=== PATIENT | male | born 1955 | race Caucasian/White ===

== ENCOUNTER 2017-02-18 12:47 | Observation (INO) | payer MEDICARE, OTHER ==
[2017-02-18] MEDS ORDERED: ONDANSETRON HCL IV 4 MG/2 ML VIAL IV ONE (13:28)
[2017-02-18] MEDS ORDERED: 0.9 % SODIUM CHLORIDE 1,000 ML BAG IV ONE ×2 (13:28→15:22)
[2017-02-18] MEDS ORDERED: PANTOPRAZOLE SODIUM IV 40 MG VIAL IVP ONE (13:28)
[2017-02-18] MEDS ORDERED: SUCRALFATE 1 G/10 ML UD PO ONE (13:29)
--- NOTE | 2017-02-18 13:34 | Emergency Department Record ---
History of Present Illness - General Chief complaint: Nausea, Vomiting, Diarrhea Stated complaint: NAUSEA Time Seen by Provider: 02/18/17 13:02 Source: Patient Mode of Arrival: EMS Limitations: No limitations - History of Present Illness Initial comments: The patient is here due to a one day hx of nausea, and upper abdominal pain. The patient denies any vomiting or back pain and also denies any CP or SOB. He states he had to much to drink last night and then passed out and slept outside. Today he has not felt well and has been very nauseated all day. He also feels anxious due to not taking his anxiety medicines today. He has had a Lap in the past to have part of his colon removed. MD complaint: Abdominal pain, Nausea Onset/Timin -: Days(s) Associated Abdominal Pain: Yes Location: Diffuse Severity scale (1-10): 7 Quality: Aching, Cramping Consistency: Constant Improves with: None Worsens with: None - Related Data Home Medications Medication Instructions Recorded Confirmed Last Taken Aspirin [Low Dose Aspirin EC] 81 mg PO DAILY 02/18/17 02/18/17 02/17/17 Atenolol [Tenormin] 50 mg PO DAILY 02/18/17 02/18/17 02/18/17 Bupropion HCl [Bupropion HCl ER] 200 mg PO ASDIR 02/18/17 02/18/17 02/18/17 Clonazepam [Klonopin] 0.5 mg PO TID 02/18/17 02/18/17 02/17/17 Guaifenesin 200 mg PO ASDIR 02/18/17 02/18/17 02/18/17 Hydrochlorothiazide 25 mg PO ASDIR 02/18/17 02/18/17 02/18/17 Lisinopril 10 mg PO DAILY 02/18/17 02/18/17 02/18/17 Omeprazole [Prilosec] 20 mg PO DAILY 02/18/17 02/18/17 02/18/17 Sertraline HCl [Zoloft] 100 mg PO ASDIR 02/18/17 02/18/17 02/18/17 Allergies Allergy/AdvReac Type Severity Reaction Status Date / Time No Known Drug Allergies Allergy Verified 02/18/17 13:03 Travel Screening - Travel/Exposure Within Last 30 Days Have you traveled within the last 30 days?: No - Travel/Exposure Within Last Year Have you traveled outside the [place] in the last year?: No - Additonal Travel Details Have you been exposed to anyone with a communicable illness?: No - Travel Symptoms Symptom Screening: None Review of Systems Constitutional: Denies: Chills, Fever Eyes: Denies: Eye discharge ENT: Denies: Congestion Respiratory: Denies: Cough, Dyspnea Past Medical History - SOCIAL HISTORY Smoking Status: Current every day smoker Alcohol Use: Occassional Drug Use Detail:: Marijuana - RESPIRATORY Hx Respiratory Disorders: No - CARDIOVASCULAR Hx Cardio Disorders: Yes Hx Hypertension: Yes - NEURO Hx Neuro Disorders: No - GI Hx GI Disorders: Yes Hx Reflux: Yes - Hx Genitourinary Disorders: No - ENDOCRINE Hx Endocrine Disorders: Yes Hx Diabetes: Yes - MUSCULOSKELETAL Hx Musculoskeletal Disorders: Yes Hx Arthritis: Yes - PSYCH Hx Psych Problems: Yes Hx Anxiety: Yes Hx Depression: Yes - HEMATOLOGY/ONCOLOGY Hx Hematology/Oncology Disorders: No Family Medical History Any Significant Family History?: Yes Hx Diabetes: Mother Hx HTN: Mother Physical Exam - General General Appearance: Alert, Oriented x3, Cooperative, No acute distress - Head Head exam: Atraumatic, Normocephalic, Normal inspection - Eye Eye exam: Normal appearance, PERRL - ENT Throat exam: Normal inspection. negative: Tonsillar erythema, Tonsillar exudate - Neck Neck exam: Normal inspection, Full ROM. negative: Tenderness - Respiratory Respiratory exam: Normal lung sounds bilaterally. negative: Respiratory distress - Cardiovascular Cardiovascular Exam: Regular rate, Normal rhythm, Normal heart sounds - GI/Abdominal GI/Abdominal exam: Soft, Tenderness (There is mild epigastric tenderness but no guarding or rebound. The abdomen is very soft.). negative: Distended, Guarding , Rebound, Rigid - Extremities Extremities exam: Normal inspection, Full ROM, Normal capillary refill. negative: Tenderness Course Vital Signs 02/18/17 13:12 Temperature 97.6 F Pulse Rate 57 L Respiratory 18 Rate Blood Pressure 121/81 Pulse Ox 98 - Reevaluation(s) Reevaluation #1: The patient is doing much better at this time. He denies any significant pain and his nausea is much improved. One exam his abdomen is very soft and nontender in all 4 quads. 02/18/17 15:53 Reevaluation #2: The patient is doing much better at this time. His pain did resolve with the Dilaudid. On recheck his WBC did decrease but his Lactate was elevated at 3.5. Due to that fact I do feel it is important to watch the patient in the hospital overnight. The patient agrees to the plan. I also did discuss the case with Mariella QUIÑONEZ) and she does accept the admission for Dr. Ba. 02/18/17 17:57 02/18/17 18:03 Reevaluation #3: I did also discuss the case with Dr. Kearney (Gen Surg) and he will consult on the case. 02/18/17 18:40 Medical Decision Making - Data Complexity MDM Data: Labs Ordered and/or Reviewed, X-Ray Ordered and/or Reviewed, EKG Ordered and/or Reviewed - Lab Data Result diagrams: 02/18/17 17:30 02/18/17 14:22 - EKG Data -: EKG Interpreted by Me EKG: No Acute Changes (NSR. Nonspecific IVCD.) - Radiology Data Radiology results: Report reviewed (CT: No acute changes or surgical pathology.) Disposition Disposition: Admit Clinical Impression: Abdominal pain Qualifiers: Abdominal location: generalized Qualified Code(s): R10.84 - Generalized abdominal pain Disposition: Still a Patient at [facility] Decision to Admit: Admit from ER Decision to Admit Date: 02/18/17 Decision to Admit Time: 18:11 Accepting Physician: Jesenia Time Discussed w/Accepting Physician: 18:11 Condition: (2) Stable Forms: Patient Portal Access Time of Disposition: 18:11
[2017-02-18 14:30] LABS: HEMATOCRIT 51.7 % (42.0-52.0); HEMOGLOBIN 17.8 gm/dl (14.0-18.0); MEAN CELL VOLUME 89.1 fl (81-97); MEAN CORPUSCULAR HGB CONC 34.4 g/dl (32-36); MEAN PLATELET VOLUME 10.6 fl (7.4-10.4); PLATELET COUNT 325 K/uL (130-400); RED CELL DISTRIBUTION WIDTH 13.4 % (11.5-14.5); WHITE BLOOD COUNT W/O DIFF 18.2 K/uL (4.2-12.2)
[2017-02-18 14:31] LABS: MEAN CORPUSCULAR HEMOGLOBIN 30.6 pg (27-33)
[2017-02-18 14:40] LABS: CREATINE PHOSPHOKINASE 167 U/L (55-170)
[2017-02-18 14:41] LABS: ALBUMIN 5.2 gm/dL (3.5-5.0); ALKALINE PHOSPHATASE 110 U/L (38-126); ALT/SGPT 29 U/L (21-72); ANION GAP 19.4 (7-16); AST/SGOT 38 U/L (17-59); BILIRUBIN,TOTAL 1.06 mg/dL (0.2-1.3); BLOOD UREA NITROGEN 16 mg/dL (9-20); CARBON DIOXIDE 26.6 mmol/L (22-30); EST GLOMERULAR FILTRATION RATE > 60 ml/min; GLUCOSE,RANDOM 167 mg/dL (70-110); LIPASE 52 U/L (23-300); TOTAL PROTEIN 8.4 gm/dL (6.3-8.2)
[2017-02-18 14:44] LABS: PLATELET ESTIMATE NORMAL (NORMAL)
[2017-02-18 14:53] LABS: CKMB 3.1 ug/L (0-6); TROPONIN I < 0.012 ng/mL (0.00-0.034)
[2017-02-18] MEDS ORDERED: ONDANSETRON HCL IV 4 MG/2 ML VIAL IVP ONE (16:26)
[2017-02-18 16:36] LABS: URINE APPEARANCE CLEAR; URINE BILIRUBIN NEGATIVE (NEGATIVE); URINE BLOOD TRACE-I (NEGATIVE); URINE COLOR YELLOW; URINE GLUCOSE (UA) NEGATIVE (NEGATIVE); URINE KETONE 15 mg/dL (NEGATIVE); URINE LEUKOCYTE ESTERASE NEGATIVE (NEGATIVE); URINE NITRITE NEGATIVE (NEGATIVE); URINE UROBILINOGEN 0.2 E.U./dL (0.20 - 1.00)
[2017-02-18 16:43] LABS: URINE EPITHELIAL CELLS NONE SEEN (FEW); URINE RBC 0 - 2 (NONE SEEN); URINE WBC NONE SEEN (0-2/hpf)
[2017-02-18] MEDS ORDERED: HYDROMORPHONE HCL 1 MG/ML CPJ IVP ONE (17:11)
[2017-02-18] MEDS ORDERED: MAGNESIUM HYDROXIDE/AL HYDROX 30 ML, LIDOCAINE VISC 2% 200 MG PO ONE ×2 (17:16)
[2017-02-18 17:38] LABS: HEMATOCRIT 46.6 % (42.0-52.0); HEMOGLOBIN 15.9 gm/dl (14.0-18.0); MEAN CELL VOLUME 89.8 fl (81-97); MEAN CORPUSCULAR HEMOGLOBIN 30.6 pg (27-33); MEAN CORPUSCULAR HGB CONC 34.1 g/dl (32-36); MEAN PLATELET VOLUME 10.4 fl (7.4-10.4); PLATELET COUNT 277 K/uL (130-400); RED BLOOD COUNT 5.19 M/uL (4.40-5.70); RED CELL DISTRIBUTION WIDTH 13.3 % (11.5-14.5); WHITE BLOOD COUNT W/O DIFF 16.3 K/uL (4.2-12.2)
[2017-02-18 17:39] LABS: GRAN % 89.6 % (47-80)
[2017-02-18 17:40] LABS: BASO % 0.1 % (0-6); EOS % 0.1 % (0-6); LYMPH % 5.5 % (16-45); MONO % 4.7 % (0-9)
[2017-02-18 17:52] LABS: LACTIC ACID 3.5 mmol/L (0.7-2.1)
[2017-02-18 17:53] LABS: C-REACTIVE PROTEIN 1.2 mg/dL (0.0-0.9)
[2017-02-18] MEDS ORDERED: 0.9 % SODIUM CHLORIDE 1000ML 1,000 ML IV PRN (19:13)
[2017-02-18] MEDS ORDERED: ONDANSETRON HCL IV 4 MG/2 ML VIAL IVP PRN (19:13)
[2017-02-18] MEDS ORDERED: ACETAMINOPHEN 500 MG TABLET PO PRN (19:13)
[2017-02-18] MEDS ORDERED: HYDROMORPHONE HCL 1 MG/ML CPJ IVP PRN (19:13)
[2017-02-18] MEDS: GUAIFENESIN 200 MG PO SCH (21:55)
[2017-02-18] MEDS: PATIENT OWN MED: CLONAZEPAM 0.5 MG PO SCH (21:55)
[2017-02-18] MEDS ORDERED: MELATONIN 5 MG TABLET PO SCH (22:00)
[2017-02-19 07:05] LABS: BASO % 0.2 % (0-6); EOS % 0.9 % (0-6); GRAN % 72.3 % (47-80); HEMOGLOBIN 14.8 gm/dl (14.0-18.0); MEAN CELL VOLUME 92.2 fl (81-97); MEAN CORPUSCULAR HEMOGLOBIN 30.3 pg (27-33); MEAN CORPUSCULAR HGB CONC 32.9 g/dl (32-36); MEAN PLATELET VOLUME 10.5 fl (7.4-10.4); MONO % 8.6 % (0-9); PLATELET COUNT 230 K/uL (130-400); RED BLOOD COUNT 4.88 M/uL (4.40-5.70); RED CELL DISTRIBUTION WIDTH 13.4 % (11.5-14.5); WHITE BLOOD COUNT W/O DIFF 15.1 K/uL (4.2-12.2)
[2017-02-19 07:38] LABS: BLOOD UREA NITROGEN 17 mg/dL (9-20); CREATININE 0.9 mg/dL (0.66-1.25); EST GLOMERULAR FILTRATION RATE > 60 ml/min; GLUCOSE,RANDOM 131 mg/dL (70-110)
--- NOTE | 2017-02-19 09:23 | History & Physical ---
History of Present Illness - Date of Service Date of Service for History & Physical: 02/19/17 - History of Present Illness Admitting Diagnosis: 1. Acute Abdominal Pain History of Present Illness: 61yo male with CC of vomiting. He has history of T2DM, anxiety, depression, GERD , arthritis, alcohol use, smoker and marijuana use. 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 He is a and follows with [facility] in [place]. Patient presented to the ED via ambulance for nausea with vomiting. 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 He started to feel "not right" and having some nausea and heartburn two days ago. that night he drank more alcohol "than I should have." He developed worsening nausea and vomiting the next day and was not able to keep fluids down and began to have some epigastric pain so decided to come to ED. While in the ED, patient was afebrile with pulse of 57 and bp of 121/81. His EKG was negative for ST changes. 1st set of CE returned wnl. Cbc showed elevated white count at 18 and CMP was unremarkable with normal renal function and electrolytes. his lactic acid level was elevated at 3.5. CRP up at 1.2. Lipase wnl range as well. He underwent CT abdomen which was negative for an acute process. Dr. Kearney, surgery on-call, was contacted by ED physician. Patient was admitted for nausea/vomiting with elevated Lactic acid level. 02/19/17- Patient is doing very well this morning. says the zofran he received in ED helped significantly and he has not had any further epigastric pain since the dilaudid he got yesterday evening. He does report some generalized soreness of the abdomen from heaving so much. He has been tolerating his clear liquid diet and tolerated some oatmeal as well without any nausea or pain. He had a normal bowel movement yesterday. Denies chest pain, diarrhea, fever, chills. He currently follows with [facility] and state he has history of persistently elevated WBC count. He says they have been following that regularly with labs. pcp: [facility] in [place] Travel Screening - Travel/Exposure Within Last 30 Days Have you traveled within the last 30 days?: No - Travel/Exposure Within Last Year Have you traveled outside the [place] in the last year?: No - Additonal Travel Details Have you been exposed to anyone with a communicable illness?: No - Travel Symptoms Symptom Screening: None Review of Systems Constitutional: Denies: Chills, Fever Eyes: Denies: Eye discharge ENT: Denies: Congestion Respiratory: Denies: Cough, Dyspnea Gastrointestinal: Reports: Nausea, Vomiting. 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 - Hx Genitourinary Disorders: No Hx Prostate Problems: Yes - ENDOCRINE Hx Endocrine Disorders: Yes Hx Diabetes: Yes - MUSCULOSKELETAL Hx Musculoskeletal Disorders: Yes Hx Arthritis: Yes Hx Osteoporosis: Yes - PSYCH Hx Psych Problems: Yes Hx Anxiety: Yes Hx Depression: Yes Feelings of Hopelessness: Yes - HEMATOLOGY/ONCOLOGY Hx Hematology/Oncology Disorders: No Family Medical History Any Significant Family History?: Yes Hx Diabetes: Mother Hx HTN: Mother H&P Meds/Allergies - Allergies Allergies: Allergies Allergy/AdvReac Type Severity Reaction Status Date / Time No Known Drug Allergies Allergy Verified 02/18/17 13:03 - Home Medications Home Medications Medication Instructions Recorded Confirmed Last Taken Aspirin [Low Dose Aspirin EC] 81 mg PO DAILY 02/18/17 02/18/17 02/17/17 Atenolol [Tenormin] 50 mg PO DAILY 02/18/17 02/18/17 02/18/17 Bupropion HCl [Bupropion HCl ER] 200 mg PO ASDIR 02/18/17 02/18/17 02/18/17 Clonazepam [Klonopin] 0.5 mg PO TID 02/18/17 02/18/17 02/17/17 Guaifenesin 200 mg PO TID 02/18/17 02/18/17 02/18/17 Ketoconazole [Nizoral] 120 ml TP ASDIR 02/18/17 02/18/17 Unknown Lisinopril 10 mg PO DAILY 02/18/17 02/18/1717 Melatonin 10 mg PO QHS 02/18/17 02/18/17 Unknown Omeprazole [Prilosec] 20 mg PO DAILYAC 02/18/17 02/18/17 02/18/17 Sertraline HCl [Zoloft] 200 mg PO DAILY 02/18/17 02/18/17 02/18/17 - Active Medications Active Medications: Current Medications Acetaminophen (Tylenol 500mg Tab) 500 mg PO Q6H PRN PRN Reason: PAIN/TEMP Last Admin: 02/18/17 21:55 Dose: 500 mg Hydromorphone HCl (Dilaudid) 1 mg IVP Q4H PRN PRN Reason: Analgesia Sodium Chloride () 1,000 mls @ 125 mls/hr IV .Q8H PRN PRN Reason: LARGE VOLUME IV Last Admin: 02/19/17 06:03 Dose: 125 mls/hr Melatonin (Melatonin) 10 mg PO QHS [facility] Last Admin: 02/18/17 21:55 Dose: 10 mg Ondansetron HCl (Zofran) 4 mg IVP Q4H PRN PRN Reason: NAUSEA Pantoprazole Sodium (Protonix Iv) 40 mg IV DAILY [facility] Patient Own Med: (Aspirin 81 Mg) 1 each PO DAILY [facility] Patient Own Med: (Atenolol 50 Mg) 1 each PO DAILY [facility] Patient Own Med: (Bupropion Sr 100 Mg) 2 each PO DAILY [facility] Patient Own Med: (Clonazepam 0.5 Mg) 1 each PO TID [facility] Last Admin: 02/18/17 21:55 Dose: 1 each Patient Own Med: (Guaifenesin 200 Mg) 1 each PO TID [facility] Last Admin: 02/18/17 21:55 Dose: 1 each Patient Own Med: (Lisinopril 10 Mg) 1 each PO DAILY [facility] Patient Own Med: (Sertraline 100 Mg) 2 each PO DAILY [facility] Physical Exam - Vital Signs Vital Signs: Vital Signs - Last 24 Hrs Temp Pulse Resp BP Pulse Ox 02/19/17 05:13 97.6 F 65 18 123/78 97 02/18/17 20:00 98.3 F 84 18 123/74 98 02/18/17 19:13 99.4 F 84 20 153/82 95 - General General Appearance: Alert, Oriented x3, Cooperative, No acute distress Limitations: No limitations - Head Head exam: Atraumatic, Normocephalic, Normal inspection - Eye Eye exam: Normal appearance, PERRL - ENT Throat exam: Normal inspection. negative: Tonsillar erythema, Tonsillar exudate - Neck Neck exam: Normal inspection, Full ROM. negative: Tenderness - Respiratory Respiratory exam: Normal lung sounds bilaterally. negative: Respiratory distress - Cardiovascular Cardiovascular Exam: Regular rate, Normal rhythm, Normal heart sounds - GI/Abdominal GI/Abdominal exam: Soft, Normal bowel sounds. negative: Distended, Guarding, Rebound, Rigid, Tenderness (no ttp) - Extremities Extremities exam: Normal inspection, Full ROM, Normal capillary refill. negative: Tenderness - Neurological Neurological exam: Alert, Normal gait, Oriented X3, Reflexes normal Results - Labs Result Diagrams: 02/19/17 06:45 02/19/17 06:45 Labs Last 24 Hours: Laboratory Results - last 24 hr 02/19/17 02/19/17 06:45 06:45 WBC 15.1 H RBC 4.88 Hgb 14.8 Hct 45.0 MCV 92.2 MCH 30.3 MCHC 32.9 RDW 13.4 Plt Count 230 MPV 10.5 H Gran % 72.3 Lymphocytes % 18.0 Monocytes % 8.6 Eosinophils % 0.9 Basophils % 0.2 Sodium 136 Potassium 3.2 L Chloride 99 Carbon Dioxide 30.0 Anion Gap 7.0 BUN 17 Creatinine 0.9 Estimated GFR > 60 Random Glucose 131 H Lactic Acid 2.0 Calcium 8.4 L - Imaging and Cardiology CT scan - abdomen Status: Report reviewed (no acute process) VTE H&P Assessment - Risk for VTE Risk for VTE: Yes Risk Level: Moderate Risk Assessment Date: 02/19/17 Risk Assessment Time: 13:28 VTE Orders Placed or Will Be Placed: Yes Plan - Detailed Diagnosis and Plan (1) Nausea and vomiting Current Visit: Yes Status: Acute Qualifiers: Vomiting type: unspecified Vomiting Intractability: non-intractable Qualified Code(s): R11.2 - Nausea with vomiting, unspecified Base Code: R11.2 - NAUSEA WITH VOMITING, UNSPECIFIED Comment: 02/19/17- resolved. Patient states his N/V resolved last night. He has tolerated clear liquid diet and some bland, soft diet foods without any return of nausea or vomiting. Patient's mother was sick with similar symtpoms a few days prior and he is her practice professional. suspect symptoms were related to infectious viral gastroenteritis. Use of alcohol was likely to contribute. -counseled patient x10 minutes on alcohol use -will have him continue to advance diet as tolerating. (2) Abdominal pain Current Visit: Yes Status: Acute Qualifiers: Abdominal location: epigastric Qualified Code(s): R10.13 - Epigastric pain Base Code: R10.9 - UNSPECIFIED ABDOMINAL PAIN Comment: 02/19/17- epigastric pain has resolved. CT abdomen was negative for acute process. Lipase wnl range. Lactic acid down to normal range today at 2.0. WBC count down to 15 today. He states he has had chronically elevated WBC count that is being followed at the [facility]. CE x1 and ekg wnl while in the ED. -continue to advance diet and monitoring for return of pain (3) Elevated lactic acid level Current Visit: Yes Status: Acute Base Code: R79.89 - OTHER SPECIFIED ABNORMAL FINDINGS OF BLOOD CHEMISTRY Comment: 02/19/17- Resolved. LA of 3.5 while in the ED down to 2.0 today following IV hydration wtih NS. Suspect elevated 2/2 dehydration from vomiting. Was not ever having chest pain, ekg negative and CE were wnl range as well. -[facility] (4) Leukocytosis Current Visit: Yes Status: Chronic Qualifiers: Leukocytosis type: unspecified Qualified Code(s): D72.829 - Elevated white blood cell count, unspecified Base Code: D72.829 - ELEVATED WHITE BLOOD CELL COUNT, UNSPECIFIED Comment: - patient reports chronically elevated WBC that is being followed by [facility]. WBC count down from 18 to 15 with hydration so suspect hemoconcentration 2/2 dehydration from vomiting. -will have [facility] for continued management (5) Full code status Current Visit: Yes Status: Acute Base Code: Z78.9 - OTHER SPECIFIED HEALTH STATUS Comment: 02/19/17- patient is full code (6) DVT prophylaxis Current Visit: Yes Status: Acute Base Code: [id number] - Comment: 02/19/17- patient is moderate risk for dVt -will encourage frequent ambulation -add lovenox 40mg sq daily for prophylaxis
[2017-02-19] MEDS ORDERED: PATIENT OWN MED: SERTRALINE 100 MG PO SCH (10:00)
[2017-02-19] MEDS ORDERED: PATIENT OWN MED: ASPIRIN 81 MG PO SCH (10:00)
[2017-02-19] MEDS ORDERED: PATIENT OWN MED: LISINOPRIL 10 MG PO SCH (10:00)
[2017-02-19] MEDS ORDERED: PANTOPRAZOLE SODIUM IV 40 MG VIAL IV SCH (10:00)
[2017-02-19] MEDS ORDERED: BUPROPION 100 MG PO SCH (10:00)
[2017-02-19] MEDS ORDERED: PATIENT OWN MED: ATENOLOL 50 MG PO SCH (10:00)
[2017-02-19] MEDS: PATIENT OWN MED: CLONAZEPAM 0.5 MG PO SCH (10:24)
[2017-02-19] MEDS: GUAIFENESIN 200 MG PO SCH (10:25)
--- NOTE | 2017-02-19 13:56 | Discharge Summary ---
Providers Discharge Summary Date: 02/19/17 Date of admission: 02/18/17 19:12 Expected Date of Discharge: 02/19/17 Attending physician: ROBERT AGUILAR Physical Exam - Vital Signs Vital Signs: Vital Signs - Last 24 Hrs Temp Pulse Resp BP Pulse Ox 02/19/17 09:00 97.9 F 65 18 140/78 100 02/19/17 05:13 97.6 F 65 18 123/78 97 02/18/17 20:00 98.3 F 84 18 123/74 98 02/18/17 19:13 99.4 F 84 20 153/82 95 - General General Appearance: Alert, Oriented x3, Cooperative, No acute distress Limitations: No limitations - Head Head exam: Atraumatic, Normocephalic, Normal inspection - Eye Eye exam: Normal appearance, PERRL - ENT Throat exam: Normal inspection. negative: Tonsillar erythema, Tonsillar exudate - Neck Neck exam: Normal inspection, Full ROM. negative: Tenderness - Respiratory Respiratory exam: Normal lung sounds bilaterally. negative: Respiratory distress - Cardiovascular Cardiovascular Exam: Regular rate, Normal rhythm, Normal heart sounds - GI/Abdominal GI/Abdominal exam: Soft, Normal bowel sounds. negative: Distended, Guarding, Rebound, Rigid, Tenderness (no ttp) - Extremities Extremities exam: Normal inspection, Full ROM, Normal capillary refill. negative: Tenderness - Neurological Neurological exam: Alert, Normal gait, Oriented X3, Reflexes normal Hospitalization - Hospitalization Admission Diagnosis: 1. Acute Abdominal Pain - Problem List/Discharge Diagnosis (1) Nausea and vomiting Current Visit: Yes Status: Acute Discharge Diagnosis: Vomiting type: unspecified Vomiting Intractability: non-intractable Qualified Code(s): R11.2 - Nausea with vomiting, unspecified Base Code: R11.2 - NAUSEA WITH VOMITING, UNSPECIFIED Comment: 02/19/17- resolved. Patient states his N/V resolved last night. He has tolerated clear liquid diet and some bland, soft diet foods without any return of nausea or vomiting. 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 suspect symptoms were related to infectious viral gastroenteritis. Use of alcohol was likely to contribute. -counseled patient x10 minutes on alcohol use -will have him continue to advance diet as tolerating. -[facility] to [facility] (2) Abdominal pain Current Visit: Yes Status: Acute Discharge Diagnosis: Abdominal location: epigastric Qualified Code(s): R10.13 - Epigastric pain Base Code: R10.9 - UNSPECIFIED ABDOMINAL PAIN Comment: 02/19/17- epigastric pain has resolved. CT abdomen was negative for acute process. Lipase wnl range. Lactic acid down to normal range today at 2.0. WBC count down to 15 today. He states he has had chronically elevated WBC count that is being followed at the [facility]. CE x1 and ekg wnl while in the ED. -continue to advance diet and monitoring for return of pain (3) Elevated lactic acid level Current Visit: Yes Status: Acute Base Code: R79.89 - OTHER SPECIFIED ABNORMAL FINDINGS OF BLOOD CHEMISTRY Comment: 02/19/17- Resolved. LA of 3.5 while in the ED down to 2.0 today following IV hydration wtih NS. Suspect elevated 2/2 dehydration from vomiting. Was not ever having chest pain, ekg negative and CE were wnl range as well. -will [facility] (4) Leukocytosis Current Visit: Yes Status: Chronic Discharge Diagnosis: Leukocytosis type: unspecified Qualified Code(s): D72.829 - Elevated white blood cell count, unspecified Base Code: D72.829 - ELEVATED WHITE BLOOD CELL COUNT, UNSPECIFIED Comment: - patient reports chronically elevated WBC that is being followed by [facility]. WBC count down from 18 to 15 with hydration so suspect hemoconcentration 2/2 dehydration from vomiting. -will have him follow up with [facility] for continued management (5) Full code status Current Visit: Yes Status: Acute Base Code: Z78.9 - OTHER SPECIFIED HEALTH STATUS Comment: 02/19/17- patient is full code (6) DVT prophylaxis Current Visit: Yes Status: Acute Base Code: [id number] - Comment: 02/19/17- patient is moderate risk for dVt -will encourage frequent ambulation -add lovenox 40mg sq daily for prophylaxis - Hospitalization Course Disposition: Home, Self-Care Hospital Course: 61yo male with CC of vomiting. He has history of T2DM, anxiety, depression, GERD , arthritis, alcohol use, smoker and marijuana use. 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 He is a and follows with [facility] in [place]. Patient presented to the ED via ambulance for nausea with vomiting. 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 He started to feel "not right" and having some nausea and heartburn two days ago. that night he drank more alcohol "than I should have." He developed worsening nausea and vomiting the next day and was not able to keep fluids down and began to have some epigastric pain so decided to come to ED. While in the ED, patient was afebrile with pulse of 57 and bp of 121/81. His EKG was negative for ST changes. 1st set of CE returned wnl. Cbc showed elevated white count at 18 and CMP was unremarkable with normal renal function and electrolytes. his lactic acid level was elevated at 3.5. CRP up at 1.2. Lipase wnl range as well. He underwent CT abdomen which was negative for an acute process. Dr. Kearney, surgery on-call, was contacted by ED physician. Patient was admitted for nausea/vomiting with elevated Lactic acid level. 02/19/17- Patient is doing very well this morning. says the zofran he received in ED helped significantly and he has not had any further epigastric pain since the dilaudid he got yesterday evening. He does report some generalized soreness of the abdomen from heaving so much. He has been tolerating his clear liquid diet and tolerated some oatmeal as well without any nausea or pain. He had a normal bowel movement yesterday. Denies chest pain, diarrhea, fever, chills. He currently follows with [facility] and state he has history of persistently elevated WBC count. He says they have been following that regularly with labs. pcp: [facility] in [place] Abnormal Labs: Abnormal Lab Results 02/19/17 02/19/17 02/19/17 Range/Units 06:45 06:45 06:45 WBC 15.1 H (4.2-12.2) K/uL MPV 10.5 H (7.4-10.4) fl Potassium 3.2 L (3.5-5.1) mmol/L Random Glucose 131 H (70-110) mg/dL Calcium 8.4 L (8.5-10.1) mg/dL C-Reactive Protein 1.5 H (0.0-0.9) mg/dL Condition at Discharge: (2) Stable Discharge Medications - Discharge Medications Home Medications: Ambulatory Orders Aspirin [Low Dose Aspirin EC] 81 mg PO DAILY 02/18/17 [Last Taken 02/17/17] Atenolol [Tenormin] 50 mg PO DAILY 02/18/17 [Last Taken 02/18/17] Bupropion HCl [Bupropion HCl ER] 200 mg PO ASDIR 02/18/17 [Last Taken 02/18/17] Clonazepam [Klonopin] 0.5 mg PO TID 02/18/17 [Last Taken 02/17/17] Guaifenesin 200 mg PO TID 02/18/17 [Last Taken 02/18/17] Ketoconazole [Nizoral] 120 ml TP ASDIR 02/18/17 [Last Taken Unknown] Lisinopril 10 mg PO DAILY 02/18/17 [Last Taken 02/18/17] Melatonin 10 mg PO QHS 02/18/17 [Last Taken Unknown] Omeprazole [Prilosec] 20 mg PO DAILYAC 02/18/17 [Last Taken 02/18/17] Sertraline HCl [Zoloft] 200 mg PO DAILY 02/18/17 [Last Taken 02/18/17] Discharge Plan - Discharge Instructions Activity at Discharge: Resume Usual Activities As Tolerated Diet at Discharge: Advance to Usual Diet Additional Instructions: [facility] for [facility] continue to advance diet as tolerating. Return to ED for any new or worsening symptoms
--- NOTE | 2017-02-22 07:16 | CT SCAN REPORT ---
EXAM: ABDOMEN AND PELVIS CT WITHOUT IV CONTRAST HISTORY: TWO DAYS RIGHT UPPER QUADRANT AND LEFT UPPER QUADRANT ABDOMINAL PAIN, NAUSEA AND VOMITING. TECHNIQUE: Contiguous axial images from the lung bases to the symphysis pubis were obtained without IV contrast. Comparison: None. FINDINGS: The lung bases are clear. Evaluation of the solid abdominal visceral organs is compromised due to lack of IV contrast, however, the liver and spleen are unremarkable. The kidneys are symmetric in size without calculi or hydronephrosis. No perinephric fat stranding. The adrenals, pancreas and gallbladder are normal. The visualized loops of small and large bowel are of normal caliber with no wall thickening. Minimal fecal material throughout the colon. Severe aortoiliac calcification. Mild ectasia of the infrarenal abdominal aorta measuring 2.9 cm. Bilateral hip arthroplasties. No lytic or blastic lesion. Chronic mild wedge deformity of the T12 vertebral body. IMPRESSION: 1. NO ACUTE INFLAMMATORY PROCESS OF THE ABDOMEN OR PELVIS. NO RENAL CALCULI. 2. SEVERE AORTIC CALCIFICATION WITH MILD ECTASIA OF THE INFRARENAL ABDOMINAL AORTA. JOB [facility]BER: [id number] [facility]
== END 2017-02-19 15:55 | disposition home or self-care (01) ==
LOC: ER 12:47 → MEDSURG 19:12
PROVIDERS: ADMIT Family Medicine; ATTEND Family Medicine
DX: R11.2 Nausea with vomiting, unspecified (principal); R10.13 Epigastric pain; R79.89 Other specified abnormal findings of blood chemistry; D72.829 Elevated white blood cell count, unspecified; Z78.9 Other specified health status
CPT/HCPCS: 99285 ×2; 96376; 96374; 96375; 82550; 83605 ×2; 83690; 85025 ×2; 80076; 86140 ×2; 82553; 84484; 80048 ×2; 81001; 85027; 74176; 93005; 93010; G0378 ×2; J2405; J1170; J3490; 99220; C9113; J7030

== ENCOUNTER 2017-08-03 11:17 | Emergency (ER) | payer MEDICARE, OTHER ==
[2017-08-03] MEDS ORDERED: ASPIRIN 325 MG TABLET PO ONE (11:19)
--- NOTE | 2017-08-03 11:26 | Emergency Department Record ---
History of Present Illness - General Stated Complaint: CHEST PAIN Time Seen by Provider: 08/03/17 11:19 Source: Patient, Family Mode of Arrival: Ambulatory Limitations: No limitations - History of Present Illness Initial comments: 62 yo male presents with concerns that have been ongoing for about 2 weeks. He states he has had right leg pain and noted the veins were sticking out after a physical therapy session two weeks ago. He denies any chest pain but states he is afraid he has veins in the neck and chest doing the same thing. He denies any chest pain with activity. No cough. He has not noticed any significant changes in his breathing. No history of DVT, PE, or AMI. No known CAD. No nausea or vomiting. PCP is at the [facility] in [place] and at [facility]. No exertional symptoms. He has had normal stress tests through his PCP in the past. No weight gain. He admits to significant anxiety at times. He feels calm and relaxed today. -: Week(s) (2) Location: Right, Lower extremity Radiation: Other (right leg) Quality: Aching Consistency: Constant Improves with: None Worsens with: None Associated Symptoms: Denies other symptoms - [place] Coma Scale Eye Response: (4) Open spontaneously Motor Response: (6) Obeys commands Verbal Response: (5) Oriented Kait Total: 15 - Related Data Allergies Allergy/AdvReac Type Severity Reaction Status Date / Time No Known Drug Allergies Allergy Verified 02/18/17 13:03 Review of Systems Constitutional: Denies: Chills, Fever, Malaise, Weakness Eyes: Denies: Eye discharge, Eye pain, Photophobia, Vision change ENT: Denies: Congestion, Dental pain, Ear pain, Epistaxis, Throat pain Respiratory: Denies: Cough, Dyspnea, Hemoptysis, Stridor, Wheezes Cardiovascular: Reports: Edema. Denies: Arrhythmia, Chest pain, Dyspnea on exertion, Palpitations, Syncope Endocrine: Denies: Fatigue, Polydipsia, Polyuria Gastrointestinal: Denies: Abdominal pain, Constipation, Diarrhea, Hematemesis, Hematochezia, Melena, Nausea, Vomiting Genitourinary: Denies: Dysuria, Frequency, Hematuria Musculoskeletal: Reports: Joint swelling, Myalgia. Denies: Arthralgia Skin: Denies: Bruising, Change in color, Rash Neurological: Reports: Tingling (tingle at times over the left anterior chest). Denies: Abnormal gait, Confusion, Headache, Numbness, Tremors, Vertigo, Weakness Psychiatric: Reports: Anxiety, Depression, Other (He does state he has episodes of anxiety. 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 - Hx Genitourinary Disorders: No Hx Prostate Problems: Yes - ENDOCRINE Hx Endocrine Disorders: Yes Hx Diabetes: Yes - MUSCULOSKELETAL Hx Musculoskeletal Disorders: Yes Hx Arthritis: Yes Hx Osteoporosis: Yes - PSYCH Hx Psych Problems: Yes Hx Anxiety: Yes Hx Depression: Yes - HEMATOLOGY/ONCOLOGY Hx Hematology/Oncology Disorders: No Family Medical History Hx Diabetes: Mother Hx HTN: Mother Physical Exam - General General Appearance: Alert, Oriented x3, Cooperative, No acute distress Limitations: No limitations - Head Head exam: Atraumatic, Normocephalic, Normal inspection - Eye Eye exam: Normal appearance, PERRL, EOMI. negative: Conjunctival injection, Nystagmus, Periorbital swelling, Scleral icterus - ENT ENT exam: Normal exam, Mucous membranes moist Ear exam: Normal external inspection Nasal Exam: Normal inspection Mouth exam: Normal external inspection Throat exam: Normal inspection. negative: Tonsillar erythema - Neck Neck exam: Normal inspection, Full ROM. negative: Lymphadenopathy, Tenderness, Thyromegaly - Respiratory Respiratory exam: Normal lung sounds bilaterally. negative: Accessory muscle use, Decreased breath sounds, Prolonged expiratory, Respiratory distress, Rhonchi, Stridor, Wheezes - Cardiovascular Cardiovascular Exam: Regular rate, Normal rhythm, Normal heart sounds. negative : Diastolic murmur, Systolic murmur Peripheral Pulses: 2+: Radial (R), Radial (L) - GI/Abdominal GI/Abdominal exam: Soft. negative: Distended, Guarding, Rebound, Rigid, Tenderness - Rectal Rectal exam: Deferred - exam: Deferred - Extremities Extremities exam: Normal inspection, Full ROM, Normal capillary refill, Other ( few scattered prominent veins on the right calf). negative: Joint swelling, Pedal edema, Tenderness - Back Back exam: Reports: Normal inspection, Full ROM. Denies: CVA tenderness (R), CVA tenderness (L), Muscle spasm, Paraspinal tenderness, Rash noted, Tenderness , Vertebral tenderness - Neurological Neurological exam: Alert, CN II-XII intact, Normal gait, Oriented X3, Reflexes normal. negative: Altered, Motor sensory deficit - Psychiatric Psychiatric exam: Normal affect, Normal mood - Skin Skin exam: Dry, Intact, Normal color, Warm. negative: Cyanosis, Diaphoretic, Erythema, Mottled, Petechiae, Urticaria, Vesicles Course - Reevaluation(s) Reevaluation #1: EKG 11:20 NSR, rate is 84, intervals are normal, axis is normal, ST or normal. No acute changes. No changes from 02/18/17. 08/03/17 11:25 08/03/17 12:09 No acute changes on the CBC or CMP The troponin is normal 08/03/17 14:01 The venous doppler of the leg was negative for DVT The CTA negative for PE, dissection, aneurysm. He does have emphysema and coronary calcification 08/03/17 14:02 The BNP was negative The TSH was negative 08/03/17 14:06 The patient was given the results He has very atypical symptoms for ACS. NO chest pain, no dyspnea, The symptoms have been present for 2 weeks with a negative work up He does have an anxiety component but he has been very cooperative, polite, relaxed throughout the entire ED stay. We discuss him calling [facility] for close follow up and reasons for returning to the ED Medical Decision Making - Lab Data Result diagrams: 08/03/17 11:30 08/03/17 11:30 Disposition Disposition: Discharge Clinical Impression: Leg pain, right Disposition: Home, Self-Care Condition: (1) Good Instructions: Leg Pain (ED) Additional Instructions: Call your [facility] doctor today for close follow up Return to the ER if you have any return of your symptoms or any concerns Forms: Patient Portal Access Time of Disposition: 14:09 Quality - Quality Measures Quality Measures: N/A - Blood Pressure Screening Does Patient Have Any of the Following: No Blood Pressure Classification: Pre-Hypertensive BP Reading Systolic Measurement: 135 Diastolic Measurement: 83 Screening for High Blood Pressure: < Pre-Hypertensive BP, F/U Documented > [ [id number]] Pre-Hypertensive Follow-up Interventions: Referral to alternative/primary care provider.
[2017-08-03 11:40] LABS: BASO % 0.6 % (0-6); EOS % 3.2 % (0-6); GRAN % 65.7 % (47-80); HEMATOCRIT 47.6 % (42.0-52.0); HEMOGLOBIN 16.7 gm/dl (14.0-18.0); LYMPH % 21.7 % (16-45); MEAN CELL VOLUME 82.9 fl (81-97); MEAN CORPUSCULAR HGB CONC 35.1 g/dl (32-36); MEAN PLATELET VOLUME 9.8 fl (7.4-10.4); MONO % 8.8 % (0-9); PLATELET COUNT 274 K/uL (130-400); RED BLOOD COUNT 5.74 M/uL (4.40-5.70); RED CELL DISTRIBUTION WIDTH 12.8 % (11.5-14.5); WHITE BLOOD COUNT W/O DIFF 9.8 K/uL (4.2-12.2)
[2017-08-03 11:51] LABS: INR 1.05; PARTIAL THROMBOPLASTIN TIME 28.4 SECONDS (24.5-39.1); PROTHROMBIN TIME (PATIENT) 11.3 SECONDS (9.5-12.1)
[2017-08-03 12:00] LABS: ALB/GLOB RATIO 1.6 (1.1-1.8); ALBUMIN 4.8 g/dL (4.0-5.0); ALKALINE PHOSPHATASE 95 U/L (40-129); ALT/SGPT 32 U/L (<41); AST/SGOT 26 U/L (10.0-50.0); BLOOD UREA NITROGEN 21 mg/dL (8-23); EST GLOMERULAR FILTRATION RATE > 60 mL/min; GLUCOSE,RANDOM 116 mg/dL (74-109); TOTAL PROTEIN 7.8 g/dL (6.6-8.7)
[2017-08-03 12:08] LABS: NTpro B-NATRIURETIC PEPTIDE 20.67 pg/mL (<125); THYROID STIMULATING HORMONE 2.19 uIU/mL (0.270-4.20)
--- NOTE | 2017-08-04 10:01 | US VENOUS DOPPLER REPORT ---
EXAM: RIGHT LOWER EXTREMITY VENOUS DOPPLER ULTRASOUND HISTORY: RIGHT LEG PAIN AND SWELLING. TECHNIQUE: Real-time berrios scale sonographic imaging of the right lower extremity was performed with Duplex Doppler and spectral analysis. Comparison: None. FINDINGS: RIGHT CFV: No DVT GSV: No DVT Profunda Vein: No DVT Superficial Femoral Vein: No DVT Popliteal Vein: No DVT Posterior Tibial Vein: No DVT Anterior Tibial Vein: No DVT Peroneal Vein: No DVT Normal respiratory phasicity on spectral analysis in the right common femoral vein. IMPRESSION: NO EVIDENCE OF RIGHT LOWER EXTREMITY DVT. JOB [facility]BER: [id number] [facility]
--- NOTE | 2017-08-04 10:06 | CT ANGIOGRAM REPORT ---
EXAM: CTA OF THE CHEST HISTORY: LEFT UPPER CHEST PAIN FOR TWO WEEKS. RIGHT LEG PAIN. TECHNIQUE: Contiguous axial images from the thoracic inlet to the upper abdomen were obtained after the uneventful intravenous administration of 100 ml of Omnipaque 350. Sagittal and coronal two dimensional as well as 3D/MIP reformatted images were obtained for better anatomic delineation. Comparison: None. FINDINGS: Moderate to extensive upper lobe centrilobular and paraseptal emphysema. No pleural effusion. The central airways are patent. The heart is not enlarged and there is no pericardial effusion. Moderate calcification of the LAD. No enlarged lymph nodes in the thorax. The pulmonary arteries are well opacified. No filling defect to suggest pulmonary embolism. No thoracic aortic dissection or aneurysm. Minimal calcification of the thoracic aorta. The upper abdomen is unremarkable. No lytic or blastic osseous lesion. Mild wedge deformity lower thoracic spine. Minimal wedge deformity upper thoracic spine. IMPRESSION: 1. NO ACUTE INTRATHORACIC PROCESS WITH NO PE OR THORACIC AORTIC DISSECTION. 2. MODERATE TO EXTENSIVE EMPHYSEMA. 3. MODERATE CORONARY ARTERY CALCIFICATION. JOB NUMBER: [id number] [facility]
== END 2017-08-03 15:05 | disposition home or self-care (01) ==
LOC: ER 11:17
DX: M79.661 Pain in right lower leg (principal); R07.89 Other chest pain; E11.9 Type 2 diabetes mellitus without complications; I10 Essential (primary) hypertension; F17.210 Nicotine dependence, cigarettes, uncomplicated
CPT/HCPCS: 99284 ×2; 85025; 85730; 85610; 80053; 84443; 84484; 85379; 83880; 93971; 71275; Q9967

== ENCOUNTER 2019-04-08 08:31 | Emergency (ER) | payer MEDICARE, OTHER ==
[2019-04-08] MEDS ORDERED: ONDANSETRON HCL IV 4 MG/2 ML VIAL IVP ONE (08:38)
[2019-04-08] MEDS ORDERED: ACETAMINOPHEN 1,000 MG/100 ML BTL IVPB ONE (08:38)
[2019-04-08] MEDS ORDERED: 0.9 % SODIUM CHLORIDE 1,000 ML BAG IV ONE (08:38)
--- NOTE | 2019-04-08 08:44 | Emergency Department Record ---
History of Present Illness - General Chief Complaint: Abdominal Pain Stated Complaint: STOMACH PAIN Time Seen by Provider: 04/08/19 08:32 Source: Patient Mode of Arrival: Ambulatory Limitations: No limitations - History of Present Illness Initial Comments: 64 yo male presents with upper abdominal pain for one week. The pain intensity comes and goes but it is consistently present. He has had some nausea and some vomiting. He had constipation a week and a half ago and took Miralax and now the stools are softer. No fever. No back pain. No blood in the vomit. He has had his appendix removed. 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 No chest pain. No shortness of breath. [facility] MD Complaint: Abdominal pain -: Week(s) (1) Location: Epigastric, LUQ, RUQ Radiation: LUQ, RUQ Migration to: LUQ, RUQ Severity: Moderate Quality: Aching, Fullness Consistency: Constant Improves With: Nothing Worsens With: Eating Context: Other Associated Symptoms: Anorexia - Related Data Previous Rx's Medication Instructions Recorded Hydrocodone/Acetaminophen [Farner 1 each PO Q6H #10 tablet 04/08/19 5-325 Tablet] Ondansetron [Zofran Odt] 4 mg PO Q8H #15 tab.rapdis 04/08/19 Allergies Allergy/AdvReac Type Severity Reaction Status Date / Time No Known Drug Allergies Allergy Verified 04/08/19 08:52 Review of Systems Constitutional: Denies: Chills, Fever, Malaise, Night sweats, Weakness Eyes: Denies: Eye discharge, Eye pain, Photophobia, Vision change ENT: Denies: Congestion, Throat pain Respiratory: Denies: Cough, Dyspnea Cardiovascular: Denies: Chest pain, Palpitations, Syncope Endocrine: Denies: Fatigue Gastrointestinal: Reports: Abdominal pain, Constipation (Prior to Miralax), Diarrhea (after Miralax), Nausea, Vomiting. Denies: Hematemesis, Hematochezia, Melena Genitourinary: Denies: Dysuria, Frequency, Hematuria Musculoskeletal: Denies: Arthralgia, Back pain, Myalgia Skin: Denies: Bruising, Change in color, Rash Neurological: Denies: Headache Psychiatric: Denies: Anxiety Hematological/Lymphatic: Denies: Easy bleeding, Easy bruising Past Medical History - SOCIAL HISTORY Smoking Status: Current every day smoker Alcohol Use Comment: last night last drink whisky and coke once per month Drug Use: Heavy Drug Use Detail:: Marijuana - RESPIRATORY Hx Respiratory Disorders: No - CARDIOVASCULAR Hx Cardio Disorders: Yes Hx Hypertension: Yes - NEURO Hx Neuro Disorders: No - GI Hx GI Disorders: Yes Hx Reflux: Yes Comment:: 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 - Hx Genitourinary Disorders: No Hx Prostate Problems: Yes - ENDOCRINE Hx Endocrine Disorders: Yes Hx Diabetes: Yes - MUSCULOSKELETAL Hx Musculoskeletal Disorders: Yes Hx Arthritis: Yes Hx Osteoporosis: Yes - PSYCH Hx Psych Problems: Yes Hx Anxiety: Yes Hx Depression: Yes - HEMATOLOGY/ONCOLOGY Hx Hematology/Oncology Disorders: No Family Medical History Hx Diabetes: Mother Hx HTN: Mother Physical Exam - General General Appearance: Alert, Oriented x3, Cooperative, No acute distress Limitations: No limitations - Head Head exam: Atraumatic, Normal inspection - Eye Eye exam: Normal appearance, PERRL. negative: Conjunctival injection, Scleral icterus - ENT ENT exam: Normal exam, Mucous membranes moist, Normal external ear exam Ear exam: Normal external inspection Nasal Exam: Normal inspection Mouth exam: Normal external inspection - Neck Neck exam: Normal inspection, Full ROM. negative: Tenderness - Respiratory Respiratory exam: Normal lung sounds bilaterally. negative: Respiratory distress, Rhonchi, Stridor, Wheezes - Cardiovascular Cardiovascular Exam: Regular rate, Normal rhythm, Normal heart sounds - GI/Abdominal GI/Abdominal exam: Soft, Tenderness (The abdomen is very soft but equally tender across the upper abdomen). negative: Distended, Guarding, Rebound, Rigid - Rectal Rectal exam: Deferred - exam: Deferred - Extremities Extremities exam: Normal inspection - Back Back exam: Denies: CVA tenderness (R), CVA tenderness (L) - Neurological Neurological exam: Alert, Oriented X3 - Psychiatric Psychiatric exam: Normal affect, Normal mood. negative: Agitated, Anxious - Skin Skin exam: Dry, Intact, Normal color, Warm Course - Reevaluation(s) Reevaluation #1: 04/08/19 10:31 The labs were reviewed CBC with WBC of 12 The CMP was reviewed. No significant abnormalities. The Lipase was mildly elevated at 163. 04/08/19 10:52 CT demonstrates mild haziness of the head of the pancreas and uncinate process by represent pancreatitis. 04/08/19 11:09 We discussed the results of the tests and questions were answered No obvious gall stones on the CT but I explained they can be missed on CT. The other LFT's are normal without obstructive pattern. He has not had alcohol in about 3 years. He is on medications that have been know to cause pancreatitis (Lisinopril - this was increased recently) and his symptoms he states started after starting duloxetine. Since he clinically looks well we discussed DC with recheck in this ED if worse. Otherwise he will call his PCP Wednesday and recheck labs and consider US if indicated. The patient is doing well and is comfortable with DC plan DC vitals were reviewed. We again discussed at length reasons to immediately return to the ED as well as close follow up. Medical Decision Making - Lab Data Result diagrams: 04/08/19 09:10 04/08/19 09:10 Disposition Disposition: Discharge Clinical Impression: Abdominal pain Qualifiers: Abdominal location: unspecified location Qualified Code(s): R10.9 - Unspecified abdominal pain Pancreatitis Qualifiers: Chronicity: acute Pancreatitis type: unspecified pancreatitis type Acute pancreatitis complication: unspecified Qualified Code(s): K85.90 - Acute pancreatitis without necrosis or infection, unspecified Disposition: Home, Self-Care Condition: (1) Good Instructions: Pancreatitis (ED) Additional Instructions: Return to the ER to be rechecked in the next 1-2 days if worse at any point in time Otherwise, call your doctor on Wednesday to schedule the recheck of your Lipase (Pancreas test) Avoid any fatty food as this can make the symptoms worse Prescriptions: Hydrocodone/Acetaminophen [Farner 5-325 Tablet] 1 each PO Q6H #10 tablet Ondansetron [Zofran Odt] 4 mg PO Q8H #15 tab.rapdis Forms: Patient Portal Access Time of Disposition: 11:09 Quality - Quality Measures Quality Measures: N/A - Blood Pressure Screening Does Patient Have Any of the Following: Active Dx of HTN Blood Pressure Classification: Hypertensive Reading Systolic Measurement: 156 Diastolic Measurement: 95 Screening for High Blood Pressure: Patient Exclusion, Hx of HTN [G9744]
[2019-04-08 09:38] LABS: ABSOLUTE NEUTROPHIL COUNT 8.77; BASO % 0.6 % (0-6); EOS % 2.6 % (0-6); GRAN % 70.6 % (47-80); HEMATOCRIT 47.7 % (42.0-52.0); HEMOGLOBIN 16.3 gm/dl (14.0-18.0); LYMPH % 18.6 % (16-45); MEAN CELL VOLUME 83.5 fl (81-97); MEAN CORPUSCULAR HEMOGLOBIN 28.5 pg (27-33); MEAN CORPUSCULAR HGB CONC 34.2 g/dl (32-36); MEAN PLATELET VOLUME 10.3 fl (7.4-10.4); MONO % 7.6 % (0-9); PLATELET COUNT 331 K/uL (130-400); RED BLOOD COUNT 5.71 M/uL (4.40-5.70); WHITE BLOOD COUNT W/O DIFF 12.4 K/uL (4.2-12.2)
[2019-04-08 10:07] LABS: BLOOD UREA NITROGEN 18 mg/dL (8-23); CREATININE 0.8 mg/dL (0.7-1.2); EST GLOMERULAR FILTRATION RATE > 60 mL/min
[2019-04-08 10:08] LABS: LIPASE 163 U/L (13-60); TOTAL PROTEIN 7.9 g/dL (6.6-8.7)
[2019-04-08 10:10] LABS: GLUCOSE,RANDOM 159 mg/dL (74-109)
[2019-04-08 10:12] LABS: ALT/SGPT 20 U/L (<41)
[2019-04-08 10:13] LABS: ALB/GLOB RATIO 1.4 (1.1-1.8); ALBUMIN 4.6 g/dL (4.0-5.0); ALKALINE PHOSPHATASE 127 U/L (40-129); AST/SGOT 19 U/L (10.0-50.0)
[2019-04-08 10:33] LABS: URINE APPEARANCE CLEAR; URINE BILIRUBIN NEGATIVE (NEGATIVE); URINE BLOOD TRACE-I (NEGATIVE); URINE COLOR YELLOW; URINE GLUCOSE (UA) NEGATIVE (NEGATIVE); URINE KETONE NEGATIVE (NEGATIVE); URINE LEUKOCYTE ESTERASE NEGATIVE (NEGATIVE); URINE NITRITE NEGATIVE (NEGATIVE); URINE PROTEIN TRACE (NEGATIVE); URINE UROBILINOGEN 0.2 E.U./dL (0.20 - 1.00)
[2019-04-08 10:41] LABS: URINE EPITHELIAL CELLS 0 - 2 (FEW); URINE RBC 0 - 2 (NONE SEEN); URINE WBC 0 - 2 (0-2/hpf)
[2019-04-08 10:42] LABS: URINE BACTERIA NONE SEEN
--- NOTE | 2019-04-11 07:23 | CT SCAN REPORT ---
EXAM: CT OF THE ABDOMEN AND PELVIS WITH CONTRAST HISTORY: UPPER ABDOMINAL PAIN FOR ONE WEEK. ELEVATED SERUM LIPASE AND ELEVATED SERUM WHITE BLOOD CELL COUNT. TECHNIQUE: Contrast enhanced helical CT examination of the abdomen and pelvis was performed including delayed images through the kidneys with 95 ml of Omnipaque 300 utilized. Oral contrast was utilized. Comparison: CT abdomen and pelvis without contrast dated 02/18/17. FINDINGS: There is mild scarring again noted within the anterior lung bases. Minor patchy opacities in the dependent lung bases are consistent with atelectasis. No pleural or pericardial effusion. Atherosclerotic calcification is present in the visualized coronary arteries. There is mild diffuse hepatic steatosis. The liver is otherwise normal in appearance. The gallbladder is unremarkable and no biliary ductal dilatation is seen. A calcified granuloma is again noted within the lower spleen. The spleen is otherwise normal in appearance. The left adrenal gland remains normal in appearance. Minimal nodularity of the medial right adrenal gland is stable. There does appear to be mild haziness of fat about the inferior aspect of the pancreatic head and uncinate process suspicious for pancreatitis. No definite pancreatic mass. There is questionable mucosal thickening in the second portion of the duodenum near the ampulla. The left kidney is normal in appearance. A too small to characterize hypodense lesion is present in the lateral mid right kidney. This measures 8 mm in diameter. It is nonspecific, but likely a cyst. The right kidney is otherwise normal in appearance. No intraabdominal nor retroperitoneal lymphadenopathy is seen. Diffuse atherosclerosis redemonstrated. Mild ectasia of the infrarenal abdominal aorta redemonstrated. This segment measures approximately 4.5 cm in length. It extends to the bifurcation. It measures 2.8 cm AP x 2.7 cm transverse. This is not significantly changed in the interval. No new intraabdominal nor retroperitoneal lymphadenopathy. Evaluation of the lower pelvis is limited by beam hardening artifact from bilateral hip prostheses. No definite pelvic mass, lymphadenopathy, or free pelvic fluid. The prostate gland is likely enlarged. No definite intrinsic urinary bladder abnormality. No gross bowel dilatation nor bowel wall thickening. There is a moderate amount of stool within the colon. By history, the appendix is surgically absent. No new lytic or blastic bone lesion is seen. Compression deformity of T12 is redemonstrated and stable. There is fusion of the T11 and T12 vertebral bodies. There is chronic sclerosis within the left ischium. No free intraperitoneal air. The abdominal wall is intact. IMPRESSION: 1. MILD FAT STRANDING ADJACENT TO THE INFERIOR ASPECT OF THE PANCREATIC BODY AND UNCINATE PROCESS SUSPICIOUS FOR MILD PANCREATITIS. NO DEFINITE PANCREATIC MASS. POSSIBLE MILD MUCOSAL FOLD THICKENING IN THE SECOND PORTION OF THE DUODENUM AT THE LEVEL OF THE AMPULLA. 2. HEPATIC STEATOSIS. 3. MILD INFRARENAL ABDOMINAL AORTIC ECTASIA IS STABLE. 4. STATUS POST BILATERAL HIP ARTHROPLASTY LIMITING EVALUATION OF THE LOWER PELVIS. JOB NUMBER: [id number] [facility]
== END 2019-04-08 11:40 | disposition home or self-care (01) ==
LOC: ER 08:31
DX: K85.90 Acute pancreatitis without necrosis or infection, unspecified (principal); R10.84 Generalized abdominal pain; R11.2 Nausea with vomiting, unspecified; I10 Essential (primary) hypertension; F17.210 Nicotine dependence, cigarettes, uncomplicated
CPT/HCPCS: 74177; 80053; 81001; 83690; 85025; 96361; 96365; 96375; 99284; J2405; J7030